=== PATIENT | male | born 1970 | race Caucasian/White ===

== ENCOUNTER 2025-05-10 15:31 | Emergency (ER) | payer OTHER ==
[2025-05-10 16:00] LABS: Absolute Lymphocytes (CBC) 1.3 K/uL (0.7-4.9); Hematocrit 44.7 % (39.6-49.0); Hemoglobin 15.5 g/dL (13.6-17.9); MCH 30.8 pg (27.0-35.0); MCHC 34.8 g/dL (32.0-36.0); MCV 88.5 fL (80-100); MPV 6.6 fL (7.6-11.3); Nucleated RBC Absolute Count 0.0 (0-0); Nucleated Red Blood Cells % 0.1 % (0-0); RBC Red Blood Cell Count 5.05 M/uL (4.33-5.43); White Blood Count 11.10 thou/uL (4.3-10.9)
[2025-05-10 16:10] LABS: PT Prothrombin Time 12.1 SECONDS (10-13.0); Protime INR 1.07
[2025-05-10 16:25] LABS: ALT/SGPT 19.0 U/L (16-61); AST/SGOT 8.0 U/L (15-37); Alkaline Phosphatase 76.0 U/L (45-117); Anion Gap 8.9 mEq/L (5.0-15.0); BUN Blood Urea Nitrogen 9.0 mg/dL (7-18); Bilirubin Indirect, Calculated 0.3 mg/dL (0.2-0.8); Glucose Level 93.0 mg/dL (74-106); Potassium 3.9 mEq/L (3.5-5.1)
[2025-05-10 16:26] LABS: Albumin 4.0 g/dL (3.4-5.0); Albumin/Globulin Ratio 1.3 (1.1-1.8); Globulin 3.0 g/dL (2.3-3.5); Magnesium 2.3; NT PRO-BNP 99.0 pg/mL (<125); Troponin High Sensitivity 8.0 (<58.9)
--- NOTE | 2025-05-10 16:58 | RAD REPORT ---
EXAMINATION: ONE VIEW CHEST XR CLINICAL INDICATION: Male, 54 years old.,PALPITATIONS TECHNIQUE: Frontal chest projection is submitted. Examination is limited by patient positioning and t echnique. COMPARISON: No prior exam. FINDINGS: The lungs are well inflated and clear. No pneumothorax or sizable effusion. The heart is normal in s ize. Mediastinal contours are unremarkable. IMPRESSION: No acute intrathoracic abnormalities.
--- NOTE | 2025-05-10 18:23 | ER ---
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 Coronavirus screen:. Ebola Screen: Patient negative for fever greater than or equal to 101.5 degrees Fahrenheit, and additional compatible Ebola Virus Disease symptoms Patient denies exposure to infectious person. Patient denies travel to an Ebola-affected area in the 21 days before illness onset. Initial Sepsis Screen: Does the patient meet any 2 criteria? No. Patient's initial sepsis screen is negative. Does the patient have a suspected source of infection? No. Patient's initial sepsis screen is negative. Risk Assessment: Do you want to hurt yourself or someone else? Patient reports no desire to harm self or others. Onset of symptoms was May 10, 2025. Care prior to arrival: None. Activity prior to arrival: None. 15:36 Method Of Arrival: EMS: [facility] rg5 15:36 Acuity: ASHER 3 rg5 Triage Assessment: 15:41 General: Appears in no apparent distress. comfortable, Behavior is calm, cooperative, rg5 appropriate for age. Pain: Denies pain. EENT: No deficits noted. Neuro: Level of Consciousness is awake, alert, obeys commands, Oriented to person, place, time, situation. Cardiovascular: Denies chest pain, Patient's skin is warm and dry. Respiratory: Airway is patent Trachea midline Respiratory effort is even, unlabored. GI: No signs and/or symptoms were reported involving the gastrointestinal system. GI: Abdomen is flat, non-distended. : No signs and/or symptoms were reported regarding the genitourinary system. Derm: Skin is intact, Skin is dry, Skin is normal. Musculoskeletal: Circulation, motion, and sensation intact. Range of motion: intact in all extremities. Historical: - Allergies: 15:41 TETANUS VACCINES AND TOXOID; rg5 - PMHx: 15:41 Hypertensive disorder; Bipolar disorder; Anxiety; rg5 - Immunization history:: Adult Immunizations not up to date. - Infectious Disease History:: Denies. - Social history:: Smoking status: Patient denies any tobacco usage or history of. Screenin:35 [facility] ED Fall Risk Assessment (Adult) History of falling in the last 3 months, rg5 including since admission Yes- physiologic fall (2 pts) Confusion or Disorientation No (0 pts) Intoxicated or Sedated No (0 pts) Impaired Gait Yes (1 pt) Mobility Assist Device Used No (0 pt) Altered Elimination No (0 pt) Score/Fall Risk Level 0 - 2 = Low Risk Oriented to surroundings, Maintained a safe environment. 15:35 Abuse screen: Denies threats or abuse. Nutritional screening: No deficits noted. rg5 Tuberculosis screening: No symptoms or risk factors identified. Assessment: 15:40 General: Appears in no apparent distress. Behavior is calm, cooperative, appropriate rg5 for age. 15:40 Cardiovascular: Reports palpitations. rg5 16:30 Reassessment: No changes from previously documented assessment. Patient and/or family rg5 updated on plan of care and expected duration. Pain level reassessed. Patient is alert, oriented x 3, equal unlabored respirations, skin warm/dry/pink. 17:11 Reassessment: Patient and/or family updated on plan of care and expected duration. Pain rg5 level reassessed. Patient is alert, oriented x 3, equal unlabored respirations, skin warm/dry/pink. Patient states symptoms have improved. 18:25 Reassessment: Patient and/or family updated on plan of care and expected duration. Pain rg5 level reassessed. Patient is alert, oriented x 3, equal unlabored respirations, skin warm/dry/pink. Patient states feeling better. Vital Signs: 15:36 BP 122 / 69; Pulse 84; Resp 18; Temp 98; Pulse Ox 100% ; Weight 68.49 kg; Height 5 ft. rg5 9 in. ; Pain 0/10; 16:34 Pulse 79; Resp 18; Pulse Ox 97% ; Pain 0/10; rg5 17:13 BP 121 / 74; Pulse 76; Resp 17; Pulse Ox 98% ; Pain 0/10; rg5 18:20 BP 114 / 76; Pulse 75; Resp 17; Pulse Ox 98% ; Pain 0/10; rg5 15:36 Body Mass Index 22.30 (68.49 kg, 175.26 cm) rg5 15:36 Pain Scale: Adult rg5 16:34 Pain Scale: Adult rg5 17:13 Pain Scale: Adult rg5 18:20 Pain Scale: Adult rg5 ED Course: 15:35 Patient arrived in ED. rg5 15:35 Rjei Ramos, RN is Primary Nurse. rg5 15:35 Baldomero Jack DO is Attending Physician. ms3 15:35 Patient has correct armband on for positive identification. Bed in low position. Call rg5 light in reach. Side rails up X 1. Door closed. Noise minimized. Warm blanket given. 15:35 No provider procedures requiring assistance completed. Inserted saline lock: 20 gauge rg5 in left antecubital area, using aseptic technique. Blood collected. Flushed with 10 mL NS. 15:41 Triage completed. rg5 15:41 Arm band placed on. rg5 16:13 XRAY Chest (1 view) In Process Unspecified. EDMS 18:25 Provided Education on: post er care. rg5 18:33 IV discontinued, bleeding controlled, No redness/swelling at site. Pressure dressing rg5 applied. Administered Medications: No medications were administered Medication: 17:12 VIS not applicable for this client. rg5 Outcome: 18:23 Discharge ordered by . ms3 18:33 Discharged to Law Enforcement rg5 18:33 Condition: stable 18:33 Instructed on discharge instructions, 18:34 Patient left the ED. rg5 Signatures: Dispatcher [employer] EDAK Baldomero Jack DO DO ms3 Reji Ramos RN RN rg5
--- NOTE | 2025-05-10 18:23 | EDPHYS ---
Physician Documentation [facility] Name: Rudi Mullins Age: 54 yrs Sex: Male : 1970 Arrival Date: 05/10/2025 Time: 15:31 Bed 16 Private MD: ED Physician Baldomero Jack HPI: 05/10 16:29 This 54 yrs old Male presents to ER via EMS with complaints of Palpitations. ms3 16:29 54-year-old male with past medical history of hypertension, bipolar, anxiety, ms3 schizophrenia presents to the emergency department via [facility] for palpitations that began 30 minutes prior to arrival. Patient complaining of left arm pain on EMS arrival. EMS states twelve-lead EKG was normal sinus rhythm. Patient states on arrival to the emergency department he developed left-sided chest pain. Patient denies nausea, vomiting, shortness of breath. Patient denies recreational drug use, tobacco or alcohol use. Historical: - Allergies: 15:41 TETANUS VACCINES AND TOXOID; rg5 - PMHx: 15:41 Hypertensive disorder; Bipolar disorder; Anxiety; rg5 - Immunization history:: Adult Immunizations not up to date. - Infectious Disease History:: Denies. - Social history:: Smoking status: Patient denies any tobacco usage or history of. ROS: 16:29 Constitutional: Negative for fever, and chills. Respiratory: Negative for shortness of ms3 breath, cough, wheezing, and pleuritic chest pain, Abdomen/GI: Negative for abdominal pain, nausea, vomiting, diarrhea, and constipation, 16:29 Skin: Negative for injury, rash, and discoloration, 16:29 Cardiovascular: Positive for palpitations, Exam: 16:29 Constitutional: This is a well developed, well nourished patient who is awake, alert, ms3 and in no acute distress. Cardiovascular: Regular rate and rhythm with a normal S1 and S2. No gallops, murmurs, or rubs. Normal PMI, no JVD. No pulse deficits. Respiratory: Lungs have equal breath sounds bilaterally, clear to auscultation and percussion. No rales, rhonchi or wheezes noted. No increased work of breathing, no retractions or nasal flaring. Abdomen/GI: Soft, non-tender, with normal bowel sounds. No distension or tympany. No guarding or rebound. No evidence of tenderness throughout. Skin: Warm, dry with normal turgor. Normal color with no rashes, no lesions, and no evidence of cellulitis. MS/ Extremity: Pulses equal, no cyanosis. Neurovascular intact. Full, normal range of motion. 16:29 ECG was reviewed by the Attending Physician. Vital Signs: 15:36 BP 122 / 69; Pulse 84; Resp 18; Temp 98; Pulse Ox 100% ; Weight 68.49 kg; Height 5 ft. rg5 9 in. ; Pain 0/10; 16:34 Pulse 79; Resp 18; Pulse Ox 97% ; Pain 0/10; rg5 17:13 BP 121 / 74; Pulse 76; Resp 17; Pulse Ox 98% ; Pain 0/10; rg5 18:20 BP 114 / 76; Pulse 75; Resp 17; Pulse Ox 98% ; Pain 0/10; rg5 15:36 Body Mass Index 22.30 (68.49 kg, 175.26 cm) rg5 15:36 Pain Scale: Adult rg5 16:34 Pain Scale: Adult rg5 17:13 Pain Scale: Adult rg5 18:20 Pain Scale: Adult rg5 MDM: 15:50 Medical Screening Exam initiated ms3 18:23 Differential diagnosis: arrythmia, stress disorder, Electrolyte abnormality. Data ms3 reviewed: vital signs, nurses notes, lab test result(s), EKG, radiologic studies, and as a result, I will discharge patient. Consideration of Admission/Observation Escalation of care including admission/observation considered. Independent interpretation of the following test(s) in the Emergency Department EKG: See my EKG interpretation above X-Ray: My interpretation is CXR image reviewed by me does not reveal cardiomegaly . Counseling: I had a detailed discussion with the patient and/or guardian regarding the historical points, exam findings, and any diagnostic results supporting the discharge/admit diagnosis, lab results, the need for outpatient follow up, to return to the emergency department if symptoms worsen or persist or if there are any questions or concerns that arise at home. Special discussion: I discussed with the patient/guardian in detail that at this point there is no indication for admission to the hospital. It is understood, however, that if the symptoms persist or worsen the patient needs to return immediately for re-evaluation. ED course: Discussed labs, chest x-ray, EKG findings with patient. Patient to follow-up with primary care physician's senior principal process engineer in 2 to 3 days. Patient understands and agrees with plan. All questions were answered. Return precautions were discussed to include chest pain, shortness of breath, vomiting, worsening symptoms, or any other concerns.. 05/10 15:37 Order name: Basic Metabolic Panel; Complete Time: 16:27 ms3 05/10 15:37 Order name: CBC with Diff; Complete Time: 16:27 ms3 05/10 15:37 Order name: LFT's; Complete Time: 16:27 ms3 05/10 15:37 Order name: Magnesium; Complete Time: 16:27 ms3 05/10 15:37 Order name: NT PRO-BNP; Complete Time: 16:27 ms3 05/10 15:37 Order name: PT-INR; Complete Time: 16:27 ms3 05/10 15:37 Order name: Troponin HS; Complete Time: 16:27 ms3 05/10 16:45 Order name: Troponin High Sensitivity; Complete Time: 17:39 ms3 05/10 15:37 Order name: XRAY Chest (1 view); Complete Time: 17:13 ms3 05/10 15:37 Order name: Cardiac monitoring; Complete Time: 16:31 ms3 05/10 15:37 Order name: EKG - Nurse/Tech; Complete Time: 16:31 ms3 05/10 15:37 Order name: IV Saline Lock; Complete Time: 16:31 ms3 05/10 15:37 Order name: Labs collected and sent; Complete Time: 16:31 ms3 05/10 15:37 Order name: O2 Per Protocol; Complete Time: 16:31 ms3 05/10 15:37 Order name: O2 Sat Monitoring; Complete Time: 16:31 ms3 EC:29 Rate is 92 beats/min. Rhythm is regular. QRS [place] is Normal. VA interval is normal. QRS ms3 interval is normal. Clinical impression: NSR w/ Non-specific ST/T Changes. Interpreted by me. Reviewed by me. Administered Medications: No medications were administered Disposition Summary: 05/10/25 18:23 Discharge Ordered Notes: Location: Home ms3 Condition: Stable ms3 Diagnosis - Palpitations ms3 Followup: ms3 - With: Private Physician - When: 2 - 3 days - Reason: Recheck today's complaints Discharge Instructions: - Discharge Summary Sheet ms3 - Palpitations, [id number] ms3 Forms: - Medication Reconciliation Form ms3 - Antibiotic Education ms3 - Prescription Opioid Use ms3 - Patient Portal Instructions ms3 - Leadership Thank You Letter ms3 Signatures: Dispatcher [employer] EDMS Baldomero JackDO DO ms3 Reji Ramos, RN RN rg5 Corrections: (The following items were deleted from the chart) 15:37 15:37 BASIC METABOLIC PANEL+C.LAB.BRZ ordered. EDMS EDMS 15:37 15:37 CBC+H.LAB.BRZ ordered. EDMS EDMS 15:37 15:37 HEPATIC FUNCTION+C.LAB.BRZ ordered. EDMS EDMS 15:37 15:37 MAGNESIUM+C.LAB.BRZ ordered. EDMS EDMS 15:37 15:37 PROBNP+C.LAB.BRZ ordered. EDMS EDMS 15:37 15:37 PROTIME (+INR)+COAG.LAB.BRZ ordered. EDMS EDMS 15:37 15:37 Troponin High Sensitivity+C.LAB.BRZ ordered. EDMS EDMS 15:37 15:37 Chest Single View+RAD.RAD.BRZ ordered. EDMS EDMS
[2025-05-10 19:06] VITALS: TEMP 98
[2025-05-10 19:10] VITALS: O2SAT 98
[2025-05-10 19:12] VITALS: BP 114/76
== END 2025-05-10 18:34 | disposition home or self-care (01) ==
LOC: ER 15:31
DX: R00.2 Palpitations (principal); Z88.7 Allergy status to serum and vaccine; I10 Essential (primary) hypertension
CPT/HCPCS: 36415; 71045; 80048; 80076; 83735; 83880; 84484; 85025; 85610; 93005; 99284

== ENCOUNTER 2025-05-27 07:40 | Emergency (ER) | payer OTHER ==
[2025-05-27] MEDS ORDERED: ONDANSETRON 4 MG/2 ML VIAL ONE (07:56)
[2025-05-27] MEDS ORDERED: MORPHINE 4 MG/ML SYR ONE (07:56)
[2025-05-27] MEDS ORDERED: KETOROLAC 30 MG/ML INJ ONE (07:57)
[2025-05-27] MEDS ORDERED: NA CHLORIDE 0.9% 1,000 ML ONE (07:57)
[2025-05-27 08:29] LABS: Urine Microscopic Reflex YN NO UMIC
[2025-05-27 08:29] LABS: Absolute Lymphocytes (CBC) 2.3 K/uL (0.7-4.9); Hematocrit 44.7 % (39.6-49.0); Hemoglobin 15.8 g/dL (13.6-17.9); MCH 31.3 pg (27.0-35.0); MCHC 35.3 g/dL (32.0-36.0); MCV 88.6 fL (80-100); MPV 6.8 fL (7.6-11.3); Nucleated RBC Absolute Count 0.0 (0-0); Nucleated Red Blood Cells % 0.2 % (0-0); RBC Red Blood Cell Count 5.04 M/uL (4.33-5.43); White Blood Count 6.80 thou/uL (4.3-10.9)
[2025-05-27 08:45] LABS: ALT/SGPT 29.0 U/L (16-61); AST/SGOT 12.0 U/L (15-37); Albumin 3.9 g/dL (3.4-5.0); Albumin/Globulin Ratio 1.3 (1.1-1.8); Alkaline Phosphatase 110.0 U/L (45-117); Anion Gap 6.8 mEq/L (5.0-15.0); BUN Blood Urea Nitrogen 13.0 mg/dL (7-18); Globulin 3.0 g/dL (2.3-3.5); Glucose Level 84.0 mg/dL (74-106); Potassium 3.8 mEq/L (3.5-5.1)
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
[2025-05-27 10:52] VITALS: TEMP 98.2
[2025-05-27 10:58] VITALS: BP 141/77; O2SAT 100
== END 2025-05-27 09:32 | disposition home or self-care (01) ==
LOC: ER 07:40
DX: S20.212A Contusion of left front wall of thorax, initial encounter (principal); S20.222A Contusion of left back wall of thorax, initial encounter; F17.210 Nicotine dependence, cigarettes, uncomplicated
CPT/HCPCS: 96361; 85025; 36415; 81003; 80053; 71260; 74177; 96375; 96374; 99284; Q9967; J1885; J2405; J7030